=== PATIENT | female | born 1940 | race Caucasian/White ===

== ENCOUNTER 2016-08-10 13:24 | Inpatient (IN) | payer MEDICARE ==
[~2016-08-10] VITALS: Ht 162.6 cm; Wt 82.7 kg
[2016-08-10] VITALS (7 sets, daily range): BP systolic 112–135; BP diastolic 55–73; PULSE 57–96; RESP 16–18; TEMP 97.8–98.2; O2SAT 95–98
[~2016-08-10 13:24] MED LIST: AMLO5TAB2 PO; ASPI81CH CHEW; ATEN25TA PO; ATOR20TA15 PO; BENA25TA3 PO; CEPH500C PO; CHLO25TA2 PO; CLON0.1T PO; CO Q60CA; DULO1CAP2 PO; ESSE250T; FENO1TAB39 PO; FURO20TA PO; GLUC500C36; GUAN1TAB PO; LEVO137T2 PO; LOSA25TA PO; MAGN250T10 PO; METF500T PO; MULTTAB68; OMEG100T; VITA100064 PO; VITA250T3 PO; [UNRECOGNIZED DRUG - SUPPLY]; [UNRECOGNIZED DRUG - SUPPLY]
[2016-08-10] MEDS ORDERED: DILTIAZEM INJ 125 MG in SODIUM CHLORIDE 0.9% INJ 100 ML IV SCH (13:45)
[2016-08-10] MEDS ORDERED: SODIUM CHLOR 0.9% 1000 ML INJ 1,000 ML IV SCH ×2 (13:45→14:28)
[2016-08-10] MEDS ORDERED: ONDANSETRON HCL 4 MG/2 ML VIAL IVP ONE (13:45)
--- NOTE | 2016-08-10 13:54 | PD ---
HPI Chief Complaint: Cardiac Complaint Time Seen by Provider: 13:49 Travel History International Travel<30 days: No Contact w/Intl Traveler<30days: No Traveled to known affect area: No History of Present Illness HPI 74-year-old female that presents to the ED for evaluation of weakness, nausea and dizziness as well as what appears to be new onset A. fib. Patient reports that this morning she woke up kind of weak and feeling fatigued. The patient she went to clinic to do research evaluation for arthritic pain and at the clinic they performed an EKG as well as an evaluation in the told her to come here. Patient had an ambulance called. Ambulance found her what appears to be A. fib with RVR. Heart rate was in the 150s 170s. Patient was given Cardizem as well as Zofran which improved the heart rate as well as some of her symptoms. Per patient she still feels fatigued. She denies any history of A. fib in the past but states that she had an old history of tachycardia for which she takes atenolol. She states that she's never had any heart issues. She has a whole history of smoking. Per patient she has high blood pressure as well as per patient takes metformin but not because she has diabetes but because she is prediabetic. She denies any shortness of breath. No chest pain. Per patient she had a bowel movement today that was liquidy but no bloody or black. She states that she threw up twice today. She denies any shortness of breath. No cough or runny nose. Nobody else is sick in the house. Denies any recent travel. No injuries. No headache. No pain of any kind. PFSH Past Medical History Heart Rhythm Problems: Yes (tachycardia but not a. fib per patiente years ago) High Cholesterol: Yes Diabetes: Yes Hypertension: Yes Thyroid Disease: Yes ?: Not Social History Alcohol Use: Yes Tobacco Use: No (quit "years" ago) Substance Use: No Allergies-Medications (Allergen,Severity, Reaction): Coded Allergies: Adhesives (Verified Allergy, Intermediate, Rash, 08/01/16) rash/itchy/redness Codeine (Verified Allergy, Mild, neasua, 08/01/16) Sulfa (Verified Allergy, Unknown, Rash, 08/01/16) Polytrim (Verified Adverse Reaction, Intermediate, red burning eyes, ) Reported Meds & Prescriptions Reported Meds & Active Scripts Active Fenofibrate 120 Mg Tab 134 Mg PO DAILY Take with meals Cephalexin 500 Mg Cap 500 Mg PO Q12H Atorvastatin (Atorvastatin Calcium) 20 Mg Tab 20 Mg PO HS Metformin (Metformin HCl) 500 Mg Tab 500 Mg PO AC BREAKFAST Losartan (Losartan Potassium) 25 Mg Tab 25 Mg PO DAILY Chlorthalidone 25 Mg Tab 0.5 Tab PO DAILY Atenolol 25 Mg Tab 25 Mg PO BID Levothyroxine (Levothyroxine Sodium) 137 Mcg Tab 137 Mcg PO DAILY Furosemide 20 Mg Tab 0.5 Tab PO DAILY PRN Duloxetine DR (Duloxetine HCl) 30 Mg Capdr 30 Mg PO HS Amlodipine (Amlodipine Besylate) 5 Mg Tab 5 Mg PO DAILY Guanfacine (Guanfacine HCl) 1 Mg Tab 3 Tab PO HS Do not crush, chew or divide tablet. Take with a meal. [Truemetric Strips] 50 Strips .XX DAILY PRN [TrueMetric] 1 Kit .XX DAILY PRN TrueMetrics Glucometer Reported Magnesium 250 Mg Tab [id number] (Multivitamin) 1 Each Tablet Glucosamine & Chondroitin Cap (Glucosa Batista 2Kcl/Chondroitin Batista) 1 Each Capsule Vitamin C (Ascorbic Acid) 250 Mg Tab 250 Mg PO Dorchester-3 (Dorchester-3 Fatty Acids) 100 Mg Tab.chew Co Q 10 (Coenzyme Q10 (Ubidecarenone)) 60 Mg Cap Vitamin D (Cholecalciferol) 1,000 Unit Tab 1,000 Units PO DAILY Aspirin 81 Mg Chew 162 Mg CHEW DAILY Benadryl Allergy (Diphenhydramine HCl) 25 Mg Tab 25 Mg PO HS PRN Magnesium Gluconate Unknown Strength Tab Unknown Dose PO DAILY Two tabs AM and Three tabs PM Clonidine (Clonidine HCl) 0.1 Mg Tab 0.1 Mg PO BID PRN SBP>160, DBP>90 Review of Systems Except as stated in HPI: all other systems reviewed are Neg Physical Exam Narrative GENERAL: SKIN: Warm and dry. HEAD: Atraumatic. Normocephalic. EYES: Pupils equal and round. No scleral icterus. No injection or drainage. ENT: No nasal bleeding or discharge. Mucous membranes pink and moist. Tongue is midline. No uvula deviation. NECK: Trachea midline. No JVD. CARDIOVASCULAR: Irregular rate and rhythm. No murmurs, S3, S4. RESPIRATORY: No accessory muscle use. Clear to auscultation. Breath sounds equal bilaterally. GASTROINTESTINAL: Abdomen soft, mild tenderness to palpation on the lower abdomen especially with deep palpation, nondistended. Hepatic and splenic margins not palpable. MUSCULOSKELETAL: Extremities without clubbing, cyanosis, or edema. No obvious deformities. Full range of motion of the upper and lower extremities bilaterally. 2+ pulses bilaterally. NEUROLOGICAL: Awake and alert. No obvious cranial nerve deficits. Motor grossly within normal limits. Five out of 5 muscle strength in the arms and legs. Normal speech. PSYCHIATRIC: Appropriate mood and affect; insight and judgment normal. Data Data Last Documented VS Vital Signs Date Time Temp Pulse Resp B/P Pulse Ox O2 Delivery O2 Flow Rate FiO2 08/10/16 14:39 96 16 135/73 95 Room Air 08/10/16 13:34 98.2 Orders Complete Blood Count With Diff (08/10/16 13:45) Comprehensive Metabolic Panel (08/10/16 13:45) Ckmb (Isoenzyme) Profile (08/10/16 13:45) Troponin I (08/10/16 13:45) Prothrombin Time / Inr (Pt) (08/10/16 13:45) Act Partial Throm Time (Ptt) (08/10/16 13:45) Lipase (08/10/16 13:45) Urinalysis - C+S If Indicated (08/10/16 13:45) Magnesium (Mg) (08/10/16 13:45) Thyroid Stimulating Hormone (08/10/16 13:45) Chest, Single Ap (08/10/16 13:45) Iv Access Insert/Monitor (08/10/16 13:45) Ecg Monitoring (08/10/16 13:45) Oximetry (08/10/16 13:45) Lactic Acid (08/10/16 13:45) Ondansetron Inj (Zofran Inj) (08/10/16 13:45) Sodium Chlor 0.9% 1000 Ml Inj (Ns 1000 M (08/10/16 13:45) Vital Signs (Adult) Q15MX4,Q4H (08/10/16 13:45) Environmental Health Safety Manager / Telemetry ALBERT.Q8H (08/10/16 13:45) Cardiac Rhythm ALBERT.Q8H (08/10/16 13:45) Notify Dr: Other (08/10/16 13:45) Diltiazem Inj (Cardizem Inj) (08/10/16 13:45) Sodium Chlor 0.9% 1000 Ml Inj (Ns 1000 M (08/10/16 14:28) Labs Laboratory Tests Test 08/10/16 14:00 White Blood Count 9.1 TH/MM3 Red Blood Count 4.14 MIL/MM3 Hemoglobin 13.8 GM/DL Hematocrit 40.1 % Mean Corpuscular Volume 96.8 FL Mean Corpuscular Hemoglobin 33.4 PG Mean Corpuscular Hemoglobin 34.5 % Concent Red Cell Distribution Width 12.5 % Platelet Count 189 TH/MM3 Mean Platelet Volume 9.6 FL Neutrophils (%) (Auto) 83.4 % Lymphocytes (%) (Auto) 9.3 % Monocytes (%) (Auto) 6.1 % Eosinophils (%) (Auto) 0.8 % Basophils (%) (Auto) 0.4 % Neutrophils # (Auto) 7.6 TH/MM3 Lymphocytes # (Auto) 0.8 TH/MM3 Monocytes # (Auto) 0.6 TH/MM3 Eosinophils # (Auto) 0.1 TH/MM3 Basophils # (Auto) 0.0 TH/MM3 CBC Comment DIFF FINAL Differential Comment Prothrombin Time 11.6 SEC Prothromb Time International 1.0 RATIO Ratio Activated Partial 23.6 SEC Thromboplast Time Urine Color LIGHT-YELLOW Urine Turbidity HAZY Urine pH 7.5 Urine Specific [place] 1.009 Urine Protein 30 mg/dL Urine Glucose (UA) NEG mg/dL Urine Ketones NEG mg/dL Urine Occult Blood NEG Urine Nitrite NEG Urine Bilirubin NEG Urine Urobilinogen LESS THAN 2.0 MG/DL Urine Leukocyte Esterase NEG Urine RBC 1 /hpf Urine WBC 2 /hpf Urine Squamous Epithelial 1 /hpf Cells Urine Amorphous Sediment RARE Urine Bacteria RARE /hpf Microscopic Urinalysis Comment CULT NOT INDICATED Sodium Level 141 MEQ/L Potassium Level 3.0 MEQ/L Chloride Level 105 MEQ/L Carbon Dioxide Level 23.7 MEQ/L Anion Gap 12 MEQ/L Blood Urea Nitrogen 21 MG/DL Creatinine 0.64 MG/DL Estimat Glomerular Filtration 91 ML/MIN Rate Random Glucose 142 MG/DL Lactic Acid Level 2.4 mmol/L Calcium Level 8.6 MG/DL Magnesium Level 1.6 MG/DL Total Bilirubin 0.4 MG/DL Aspartate Amino Transf 23 U/L (AST/SGOT) Alanine Aminotransferase 31 U/L (ALT/SGPT) Alkaline Phosphatase 50 U/L Total Creatine Kinase 78 U/L Troponin I LESS THAN 0.02 NG/ML Total Protein 7.1 GM/DL Albumin 4.3 GM/DL Lipase 153 U/L Thyroid Stimulating Hormone 2.910 uIU/ML 3rd Gen [facility] Medical Decision Making Medical Screen Exam Complete: Yes Emergency Medical Condition: Yes Medical Record Reviewed: Yes Interpretation(s) CBC & BMP Diagram 08/10/16 14:00 lactic acid of 2.6 LFTS WNL Lipase WNL UA negative TSH WNL EKG shows a. fib with RVR here. No sign of acute ischemia or arrhythmia read by me and attending. troponin and CKMB negative CXR negative for acute disease Differential Diagnosis A. fib versus dizziness versus new onset A. fib versus acute abdomen versus viral illness versus ACS versus electrolyte abnormality Narrative Course 75-year-old female that presents to the ED for evaluation of fatigue, weakness and new onset A. fib. Patient was properly examined and was found to have signs and symptoms of unclear etiologies at this time. Patient does appear to be somewhat tender in the lower abdomen but per patient she has to go urinate really bad. At this time I recommend labs and imaging. I will reassess the patient once she has urinated and empty her bladder for the pain in the lower abdomen. I spoke with my attending who evaluated the patient with me and agrees with plan. On reevaluation abdominal discomfort after urinarting gone, abdomen more benign at this time. My attending agrees to admission for new onset a. fib currently on drip. TEODORO was paged and Dr Galeano agrees to admission. Procedures EKG Prior to Arrival: Yes (shows a. fib on RVR at 150s-170s) Sepsis Criteria SIRS Criteria (2 or more): Heart rate over 90 Diagnosis Primary Impression: Atrial fibrillation with RVR Additional Impressions: Nausea Lactic acid acidosis Admitting Information Admitting Physician Requests: Admit Nguyễn Slater Aug 10, 2016 13:54
[2016-08-10 14:10] LABS: AUTOMATED NEUTROPHIL # 7.6 TH/MM3 (1.8-7.7); BASOPHIL % 0.4 % (0.0-2.0); EOSINOPHIL # 0.1 TH/MM3 (0-0.4); EOSINOPHIL % 0.8 % (0.0-4.0); HEMATOCRIT 40.1 % (35.0-46.0); HEMO FLAGS DIFF FINAL; LYMPH % 9.3 % (9.0-44.0); LYMPHOCYTE # 0.8 TH/MM3 (1.0-4.8); MEAN CELL VOLUME 96.8 FL (80.0-100.0); MEAN CORPUSCULAR HEMOGLOBIN 33.4 PG (27.0-34.0); MEAN CORPUSCULAR HGB CONC 34.5 % (32.0-36.0); MONO % 6.1 % (0.0-8.0); NEUT % 83.4 % (16.0-70.0); PLATELET COUNT 189 TH/MM3 (150-450); RED BLOOD COUNT 4.14 MIL/MM3 (4.00-5.30); RED CELL DISTRIBUTION WIDTH 12.5 % (11.6-17.2); WHITE BLOOD COUNT 9.1 TH/MM3 (4.0-11.0)
[2016-08-10 14:12] LABS: BACTERIA, URINE RARE /hpf; BLOOD, URINE NEG (NEG); COMMENT (UR) CULT NOT INDICATED; CULTURE IF INDICATED CULT NOT INDICATED; GLUCOSE,URINE NEG (NEG); KETONE, URINE NEG (NEG); NITRITE,URINE NEG (NEG); PH, URINE 7.5 (5.0-8.5); SQUAMOUS EPITHELIAL CELL URINE 1 /hpf (0-5); URINE COLOR LIGHT-YELLOW (YELLW/STRAW)
[2016-08-10 14:20] LABS: APTT (PATIENT) 23.6 SEC (24.3-30.1); PROTHROMBIN TIME - PATIENT 11.6 SEC (9.8-11.6)
[2016-08-10 14:22] LABS: ALT (GPT) 31 U/L (10-53); ANION GAP 12 MEQ/L (5-15); AST (GOT) 23 U/L (15-37); BICARBONATE 23.7 MEQ/L (21.0-32.0); BLOOD UREA NITROGEN 21 MG/DL (7-18); CHLORIDE 105 MEQ/L (98-107); GLOMERULAR FILTRATION RATE 91 ML/MIN (>89); MAGNESIUM 1.6 MG/DL (1.5-2.5); SODIUM (NA) 141 MEQ/L (136-145)
[2016-08-10 14:32] LABS: ALKALINE PHOSPHATASE 50 U/L (45-117); TOTAL BILIRUBIN ADULT 0.4 MG/DL (0.2-1.0)
[2016-08-10 14:33] LABS: CREATINE KINASE 78 U/L (26-192)
--- NOTE | 2016-08-10 14:53 | RADRPT ---
EXAM DATE/TIME: 08/10/2016 13:57 [facility] COMPARISON: No previous studies available for comparison. INDICATIONS : Dizziness today. MEDICAL HISTORY : Hypertension. Carcinoma, breast. SURGICAL HISTORY : Mastectomy, bilateral. Hysterectomy. ENCOUNTER: Initial ACUITY: 1 day PAIN SCORE: 0/10 LOCATION: Bilateral chest FINDINGS: Lungs are symmetrically aerated. Some thin horizontal linear densities are present in the costophren ic angles bilaterally suggestive of septal lines or scarring. Both hemidiaphragms remain fairly well delineated. The heart is normal in size. Multiple hemoclips in the right axilla. CONCLUSION: No infiltrates seen. Linear densities in the costophrenic angles bilaterally are nonspecific and cou ld represent septal lines from pulmonary interstitial edema, atelectasis, or chronic scarring. Francisco Del Angel MD on August 10, 2016 at 14:49 Board Certified Radiologist. This report was verified electronically.
--- NOTE | 2016-08-10 15:14 | PD ---
Data Data Last Documented VS Vital Signs Date Time Temp Pulse Resp B/P Pulse Ox O2 Delivery O2 Flow Rate FiO2 08/10/16 14:39 96 16 135/73 95 Room Air 08/10/16 13:34 98.2 Orders Complete Blood Count With Diff (08/10/16 13:45) Comprehensive Metabolic Panel (08/10/16 13:45) Ckmb (Isoenzyme) Profile (08/10/16 13:45) Troponin I (08/10/16 13:45) Prothrombin Time / Inr (Pt) (08/10/16 13:45) Act Partial Throm Time (Ptt) (08/10/16 13:45) Lipase (08/10/16 13:45) Urinalysis - C+S If Indicated (08/10/16 13:45) Magnesium (Mg) (08/10/16 13:45) Thyroid Stimulating Hormone (08/10/16 13:45) Chest, Single Ap (08/10/16 13:45) Iv Access Insert/Monitor (08/10/16 13:45) Ecg Monitoring (08/10/16 13:45) Oximetry (08/10/16 13:45) Lactic Acid (08/10/16 13:45) Ondansetron Inj (Zofran Inj) (08/10/16 13:45) Sodium Chlor 0.9% 1000 Ml Inj (Ns 1000 M (08/10/16 13:45) Vital Signs (Adult) Q15MX4,Q4H (08/10/16 13:45) Silver Spray Worker / Telemetry ALBERT.Q8H (08/10/16 13:45) Cardiac Rhythm ALBERT.Q8H (08/10/16 13:45) Notify Dr: Other (08/10/16 13:45) Diltiazem Inj (Cardizem Inj) (08/10/16 13:45) Sodium Chlor 0.9% 1000 Ml Inj (Ns 1000 M (08/10/16 14:28) Labs Laboratory Tests Test 08/10/16 14:00 White Blood Count 9.1 TH/MM3 Red Blood Count 4.14 MIL/MM3 Hemoglobin 13.8 GM/DL Hematocrit 40.1 % Mean Corpuscular Volume 96.8 FL Mean Corpuscular Hemoglobin 33.4 PG Mean Corpuscular Hemoglobin 34.5 % Concent Red Cell Distribution Width 12.5 % Platelet Count 189 TH/MM3 Mean Platelet Volume 9.6 FL Neutrophils (%) (Auto) 83.4 % Lymphocytes (%) (Auto) 9.3 % Monocytes (%) (Auto) 6.1 % Eosinophils (%) (Auto) 0.8 % Basophils (%) (Auto) 0.4 % Neutrophils # (Auto) 7.6 TH/MM3 Lymphocytes # (Auto) 0.8 TH/MM3 Monocytes # (Auto) 0.6 TH/MM3 Eosinophils # (Auto) 0.1 TH/MM3 Basophils # (Auto) 0.0 TH/MM3 CBC Comment DIFF FINAL Differential Comment Prothrombin Time 11.6 SEC Prothromb Time International 1.0 RATIO Ratio Activated Partial 23.6 SEC Thromboplast Time Urine Color LIGHT-YELLOW Urine Turbidity HAZY Urine pH 7.5 Urine Specific [place] 1.009 Urine Protein 30 mg/dL Urine Glucose (UA) NEG mg/dL Urine Ketones NEG mg/dL Urine Occult Blood NEG Urine Nitrite NEG Urine Bilirubin NEG Urine Urobilinogen LESS THAN 2.0 MG/DL Urine Leukocyte Esterase NEG Urine RBC 1 /hpf Urine WBC 2 /hpf Urine Squamous Epithelial 1 /hpf Cells Urine Amorphous Sediment RARE Urine Bacteria RARE /hpf Microscopic Urinalysis Comment CULT NOT INDICATED Sodium Level 141 MEQ/L Potassium Level 3.0 MEQ/L Chloride Level 105 MEQ/L Carbon Dioxide Level 23.7 MEQ/L Anion Gap 12 MEQ/L Blood Urea Nitrogen 21 MG/DL Creatinine 0.64 MG/DL Estimat Glomerular Filtration 91 ML/MIN Rate Random Glucose 142 MG/DL Lactic Acid Level 2.4 mmol/L Calcium Level 8.6 MG/DL Magnesium Level 1.6 MG/DL Total Bilirubin 0.4 MG/DL Aspartate Amino Transf 23 U/L (AST/SGOT) Alanine Aminotransferase 31 U/L (ALT/SGPT) Alkaline Phosphatase 50 U/L Total Creatine Kinase 78 U/L Troponin I LESS THAN 0.02 NG/ML Total Protein 7.1 GM/DL Albumin 4.3 GM/DL Lipase 153 U/L Thyroid Stimulating Hormone 2.910 uIU/ML 3rd Gen MDM Supervised Visit with RUSTY: Yes Narrative Course The history, exam, and medical decision-making in the associated mid-level provider note were completed with my assistance. I reviewed and agree with the findings presented. I attest that I had a [id number] encounter with the patient on the same day, and personally performed and documented my assessment and findings in the medical record. *My assessment and Findings: 74 year-old woman with weakness lethargy and some nausea with vomiting, at a research clinic for her initial intake interview when she began to have vomiting. She was found to have A. fib RVR with a rate in the 130s. EMS was called given 20 of diltiazem. Here she is still fairly somatic despite a heart rate down in the 80s to 100s. She is placed on diltiazem drip, given antiemetics, labs were obtained. No history of A. fib. She does drink alcohol regularly. No other complaints. We'll plan on admission for further evaluation and treatment. Diagnosis Primary Impression: Atrial fibrillation with RVR Additional Impressions: Lactic acid acidosis Nausea Tino Conrad MD Aug 10, 2016 15:14
[2016-08-10] MEDS ORDERED: POTASSIUM CHLORIDE 10 MEQ CONTROLLED RELEASE TAB PO ONE (15:15)
[2016-08-10] MEDS ORDERED: SODIUM CHLORIDE 0.9% FLUSH 10 ML FLUSH IV FLUSH PRN (15:15)
[2016-08-10] MEDS: NS + KCL 20 MEQ INJ 1,000 ML IV SCH (16:00)
--- NOTE | 2016-08-10 16:56 | PD.PN.STU ---
Subjective Remarks Patient is a 74 year old white female that presented to the emergency room stating that this morning she woke up with a headache and felt weak. She went to a clinic this morning for evaluation for a research study for arthritis medication where she started to feel worse. She became nauseous and felt shaky. She was trembling and couldn't fill out her paperwork for the research facility. She felt like she had an "eerie feeling" in her chest but no chest pain. She began to vomit and vomited 5-6 times this afternoon. At the research facility when her condition did not improve they called EMS. EKG performed out of house demonstrated atrial fibrillation with RVR, her pulse was 150-170. Patient states she had similar symptoms 3 weeks ago that improved after she rested. Other than these two episodes this has not happened before. She denies chest pain, shortness of breath, visual changes, neurological symptoms, abdominal pain, urinary symptoms. She was recently treated for a UTI last week with Cephalexin. She has finished the antibiotics. Denies a history of atrial fibrillation, heart disease or alcohol abuse. 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 She has never been evaluated for sleep apnea. PMH: hypothyroidism, hypertension, hyperlipidemia, hypertriglyceridemia, prediabetes Surgical history: Hysterectomy (without BSO), Bilateral mastectomy (1989, 2012) Social history: Admits to drinking 1 martini per night. Denies current tobacco use. Intermittently smoked in the past but quit in 1967. Allergies: Sulfa (rash) Active medications: Fenofibrate 120 Mg Tab 134 Mg PO DAILY Take with meals Cephalexin 500 Mg Cap 500 Mg PO Q12H Atorvastatin (Atorvastatin Calcium) 20 Mg Tab 20 Mg PO HS Metformin (Metformin HCl) 500 Mg Tab 500 Mg PO AC BREAKFAST Losartan (Losartan Potassium) 25 Mg Tab 25 Mg PO DAILY Chlorthalidone 25 Mg Tab 0.5 Tab PO DAILY Atenolol 25 Mg Tab 25 Mg PO BID Levothyroxine (Levothyroxine Sodium) 137 Mcg Tab 137 Mcg PO DAILY Furosemide 20 Mg Tab 0.5 Tab PO DAILY PRN Duloxetine DR (Duloxetine HCl) 30 Mg Capdr 30 Mg PO HS Amlodipine (Amlodipine Besylate) 5 Mg Tab 5 Mg PO DAILY Guanfacine (Guanfacine HCl) 1 Mg Tab 3 Tab PO HS Do not crush, chew or divide tablet. Take with a meal. [Truemetric Strips] 50 Strips .XX DAILY PRN [TrueMetric] 1 Kit .XX DAILY PRN TrueMetrics Glucometer Objective Vitals Vital Signs Date Time Temp Pulse Resp B/P Pulse Ox O2 Delivery O2 Flow Rate FiO2 08/10/16 16:25 65 18 131/59 08/10/16 14:39 96 16 135/73 95 Room Air 08/10/16 14:07 92 18 98 Room Air 08/10/16 14:07 92 18 98 Room Air 08/10/16 13:34 98.2 80 18 135/72 95 Result Diagram: 08/10/16 1400 08/10/16 1400 Objective Remarks GENERAL: Patient is a pleasant female, able to maintain appropriate conversation with eye contact. SKIN: Warm and dry. EYES: Pupils equal and round. No scleral icterus. No injection or drainage. ENT: No nasal bleeding or discharge. Mucous membranes pink and moist. Tongue is midline. No uvula deviation. CARDIOVASCULAR: Regular rate and rhythm. No murmurs, S3, S4. No JVD. RESPIRATORY: No central or peripheral cyanosis. No accessory muscle use. Clear to auscultation. Breath sounds equal bilaterally. No rhonchi, crackles or wheezing. GASTROINTESTINAL: Abdomen soft, nondistended. Hepatic and splenic margins not palpable. MUSCULOSKELETAL: Extremities without clubbing, cyanosis, or edema. No obvious deformities. Full range of motion of the upper and lower extremities bilaterally. 2+ pulses bilaterally. NEUROLOGICAL: Awake and alert. No obvious cranial nerve deficits. Motor grossly within normal limits. Five out of 5 muscle strength in the arms and legs. Normal speech. PSYCHIATRIC: Appropriate mood and affect; insight and judgment normal. A/P Assessment and Plan 1. Acute onset atrial fibrillation - Out of house EKG showed atrial fibrillation with RVR, pulse 150-170s. Most recent pulse 96. Denies history of previous a fib. - Hemodynamically stable, currently in sinus rhythm. - Started on diltiazem drip, metoprolol po - Order TSH - Cardiac echo results pending 2. Hypokalemia - history of vomiting this afternoon - replenish potassium 3. Lactic acidosis - Lactic acid level 2.4 4. Nausea - Continue Zofran as needed 5. Hyperglycemia - Fasting glucose was 142 - Patient on metformin at home for "prediabetes" Vika Link M3 Aug 10, 2016 16:56 Lalo Glover MD Aug 11, 2016 13:46
--- NOTE | 2016-08-10 17:02 | MB ---
cc: RANDEE AMEZCUA MD DATE OF CONSULTATION 08/10/16 INDICATIONS Atrial fibrillation. HISTORY OF PRESENT ILLNESS This is a 74-year-old female. She had progressive weakness, some nausea, dizziness, came in with new onset atrial fibrillation. She woke up this morning, went over to arthritic pain clinic and there she was complaining of some lightheadedness and nausea. They did an EKG which found atrial fibrillation. She was told to come into the ER here. When she arrivided, she was rapid ventricular rate with a heart rate to the 150s. She does not have any prior history of known heart disease that she knows of. She does take atenolol for prior mild arrhythmia but not atrial fibrillation and she is prediabetic. She now looks like she has converted after IV diltiazem. PAST MEDICAL HISTORY 1. Anemia, 2. Diabetes, 3. Hypertension 4. Prior tachycardia. SOCIAL HISTORY Denies any alcohol, tobacco or drug use. ALLERGIES ADHESIVES CODEINE SULFA POLYTRIM MEDICATIONS 1. Fenofibrate. 2. Cephalexin. 3. Atorvastatin. 4. Metformin. 5. Losartan. 6. Chlorthalidone. 7. Atenolol 8. Levothyroxine 9. Furosemide. 10. Amlodipine. REVIEW OF SYSTEMS A 12-point review of systems was performed, negative unless otherwise noted in history of present illness. PHYSICAL EXAMINATION VITAL SIGNS: Temperature 98, pulse 96, blood pressure 135/73 mmHg. GENERAL: Alert and oriented x3 in no acute distress. HEENT: Pupils reactive to light and accommodation. Extraocular movements are intact. No elevation in jugular venous distension. No thyromegaly, no lymphadenopathy, no carotid bruits. LUNGS: Clear to auscultation bilaterally. HEART: Regular rate and rhythm without murmurs, rubs or gallops. ABDOMEN: Nontender, nondistended. Good bowel sounds. No hepatosplenomegaly. EXTREMITIES: No clubbing, cyanosis or edema. Good peripheral pulses. NEUROLOGIC: Cranial nerves intact. Motor sensory grossly intact. LABORATORY DATA WBC 9.1, hemoglobin is 13.8, platelet count 189, INR is 1. Sodium 141, potassium 3.0, troponins negative and BUN is 21, creatinine 0.64. ASSESSMENT 1. Atrial fibrillation rapid ventricular rate 2. Hypertension 3. Prediabetes 4. Hyperlipidemia. PLAN The patient symptomatically is improving. I looks like she has now converted back to sinus rhythm. Her CHADS vas score would be 4 if you consider her diabetes as a point. We will discontinue atenolol, discontinue amlodipine, start metoprolol. She is currently on aspirin. We will bump that down to 81 mg a day. Then, we will have to have a discussion about long-term anticoagulation given her elevated cardioembolic risk. We will get a 2-D echocardiogram. Anticipate possible discharge tomorrow. MD JAZMIN Rinaldi/ /4:15 PM /4:48 PM
--- NOTE | 2016-08-10 17:11 | ECHRPT ---
Indication: Paroxysmal atrial fibrillation, atrial fib CONCLUSIONS Mild thickening of the mitral valve leaflets. Trace mitral valve regurgitation. Mild mitral annular calcification. Structurally normal tricuspid valve. There is trace tricuspid valve regurgitation. There is estimated moderate-to- severe pulmonary hypertension present (range 60-70 mmHg). Normal left ventricular size. Wall thickness is measured at the upper limits of normal. The left ventricular systolic function is normal with an estimated ejection fraction in the range of 55-60%. No regional wall motion abnormalities are present. BP: 135 / 73 HR: Rhythm: MEASUREMENTS (Male / Female) Normal Values Technical Quality: 2D ECHO LV Diastolic Diameter PLAX 5.7 cm 4.2 - 5.9 / 3.9 - 5.3 cm LV Systolic Diameter PLAX 3.9 cm IVS Diastolic Thickness 0.8 cm 0.6 - 1.0 / 0.6 - 0.9 cm LVPW Diastolic Thickness 0.8 cm 0.6 - 1.0 / 0.6 - 0.9 cm LV Relative Wall Thickness 0.3 LVOT Diameter 2.0 cm LA Systolic Diameter LX 3.8 cm 3.0 - 4.0 / 2.7 - 3.8 cm M-MODE AV Cusp Separation MM 1.9 cm DOPPLER AV Peak Velocity 146.0 cm/s AV Peak Gradient 8.5 mmHg AV Mean Gradient 5.0 mmHg AV Velocity Time Integral 36.7 cm LVOT Peak Velocity 69.2 cm/s LVOT Peak Gradient 1.9 mmHg LVOT Velocity Time Integral 15.9 cm AV Area Cont Eq vti 1.4 cm AV Area Cont Eq pk 1.5 cm Mitral E Point Velocity 85.9 cm/s Mitral A Point Velocity 30.6 cm/s Mitral E to A Ratio 2.8 LV E' Lateral Velocity 7.4 cm/s Mitral E to LV E' Lateral Ratio 11.6 LV E' Septal Velocity 6.8 cm/s Mitral E to LV E' Septal Ratio 12.6 TR Peak Velocity 353.0 cm/s TR Peak Gradient 49.8 mmHg PV Peak Velocity 48.9 cm/s PV Peak Gradient 1.0 mmHg FINDINGS Left Ventricle Normal left ventricular size. Wall thickness is measured at the upper limits of normal. The left ventricular systolic function is normal with an estimated ejection fraction in the range of 55-60%. No regional wall motion abnormalities are present. Left Atrium The left atrial size is mildly dilated. Mitral Valve Mild thickening of the mitral valve leaflets. Trace mitral valve regurgitation. Mild mitral annular calcification. Tricuspid Valve Structurally normal tricuspid valve. There is trace tricuspid valve regurgitation. There is estimated moderate-to- severe pulmonary hypertension present (range 60-70 mmHg). Tino Rodríguez MD, FACC (Electronically Signed) Final Date:10 August 2016 17:10 MTDD
[2016-08-10] MEDS: METOPROLOL TARTRATE 50 MG TAB PO SCH (17:38)
[2016-08-10 18:14] LABS: CREATINE KINASE 71 U/L (26-192)
--- NOTE | 2016-08-10 20:01 | HHI.HP ---
HPI Service [facility] Hospitalists Primary Care Physician Non-Staff Admission Diagnosis new onset atrial fibrillation in RVR, N/V/D Diagnoses: Chief Complaint: weakness Travel History International Travel<30 Days: No Contact w/Intl Traveler <30 Da: No Traveled to Known Affected Are: No History of Present Illness 75-year-old female with past medical history of hypertension, hyperlipidemia, hypothyroidism, prediabetes who presents to [facility] complaining of generalized weakness. The patient states that this morning she woke up and went to a clinic this morning for evaluation of a research study for arthritis medication when she started to feel worse. Patient states that she felt nauseous and shaky and also had open patient's, however denied any chest pain. The patient states that early in the morning she had 2 episodes of diarrhea and vomited 5-6 times this afternoon. Patient states that the recent facility her condition not improve so they called EMS. EKG performed in house showed atrial fibrillation with RVR at which time her pulse was 150-1 70 bpm. At the time she was given IV Cardizem which slowed her heart rate down but then it went up again and the patient was started on a Cardizem drip. The patient states she had similar symptoms 2 weeks ago which improved and resolved spontaneously with rest only. The patient otherwise denies any chest pain, shortness of breath, visual changes, abdominal pain, dysuria. States that feels nauseous, denies any further vomiting or diarrhea. Note that the patient has been recently treated for UTI last week with cephalexin which she recently finished this past weekend. Denies any previous history of atrial fibrillation heart disease or alcohol abuse. 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 Review of Systems As per history of present illness, other systems reviewed by me and negative Past Family Social History Past Medical History 1. Hypertension 2. Hyperlipidemia. 3. Hypothyroidism. 4. Hypertriglyceridemia. 5. Prediabetes. 6. Breast cancer 7. Depression Past Surgical History 1. Hysterectomy. 2. Bilateral mastectomy Reported Medications Reported Meds & Active Scripts Active Fenofibrate 120 Mg Tab 134 Mg PO DAILY Take with meals Cephalexin 500 Mg Cap 500 Mg PO Q12H Atorvastatin (Atorvastatin Calcium) 20 Mg Tab 20 Mg PO HS Metformin (Metformin HCl) 500 Mg Tab 500 Mg PO AC BREAKFAST Losartan (Losartan Potassium) 25 Mg Tab 25 Mg PO DAILY Chlorthalidone 25 Mg Tab 0.5 Tab PO DAILY Atenolol 25 Mg Tab 25 Mg PO BID Levothyroxine (Levothyroxine Sodium) 137 Mcg Tab 137 Mcg PO DAILY Furosemide 20 Mg Tab 0.5 Tab PO DAILY PRN Duloxetine DR (Duloxetine HCl) 30 Mg Capdr 30 Mg PO HS Amlodipine (Amlodipine Besylate) 5 Mg Tab 5 Mg PO DAILY Guanfacine (Guanfacine HCl) 1 Mg Tab 3 Tab PO HS Do not crush, chew or divide tablet. Take with a meal. [Truemetric Strips] 50 Strips .XX DAILY PRN [TrueMetric] 1 Kit .XX DAILY PRN TrueMetrics Glucometer Reported Magnesium 250 Mg Tab Vwd-Pyvjhy-Qekgb (Multivitamin) 1 Each Tablet Glucosamine & Chondroitin Cap (Glucosa Batista 2Kcl/Chondroitin Batista) 1 Each Capsule Vitamin C (Ascorbic Acid) 250 Mg Tab 250 Mg PO [place]-3 ([place]-3 Fatty Acids) 100 Mg Tab.chew Co Q 10 (Coenzyme Q10 (Ubidecarenone)) 60 Mg Cap Vitamin D (Cholecalciferol) 1,000 Unit Tab 1,000 Units PO DAILY Aspirin 81 Mg Chew 162 Mg CHEW DAILY Benadryl Allergy (Diphenhydramine HCl) 25 Mg Tab 25 Mg PO HS PRN Magnesium Gluconate Unknown Strength Tab Unknown Dose PO DAILY Two tabs AM and Three tabs PM Clonidine (Clonidine HCl) 0.1 Mg Tab 0.1 Mg PO BID PRN SBP>160, DBP>90 Allergies: Coded Allergies: Adhesives (Verified Allergy, Intermediate, Rash, 08/01/16) rash/itchy/redness Codeine (Verified Allergy, Mild, neasua, 08/01/16) Sulfa (Verified Allergy, Unknown, Rash, 08/01/16) Polytrim (Verified Adverse Reaction, Intermediate, red burning eyes, ) Active Ordered Medications Current Medications Medications (Trade) Dose Ordered Sig/Parag Route Start Time Stop Time Status Last Admin (NS Flush) 2 ml UNSCH PRN IV FLUSH 08/10/16 15:15 Sodium Chloride 2 ml 2 ml BID IV FLUSH 08/10/16 21:00 08/11/16 13:53 (NS + KCl 20 Meq Inj) 1,000 ml @ 100 mls/hr Q10H IV 08/10/16 16:00 08/11/16 03:06 (Lipitor) 20 mg HS PO 08/10/16 21:00 08/10/16 21:55 (Cymbalta Dr) 30 mg HS PO 08/10/16 21:00 08/10/16 21:55 (Aspirin Chew) 81 mg DAILY CHEW 08/11/16 09:00 08/11/16 13:52 (Lopressor) 50 mg BID PO 08/10/16 21:00 08/11/16 13:52 (Tricor) 145 mg DAILY PO 08/11/16 09:00 08/11/16 13:52 (Synthroid) 112 mcg DAILY@06 PO 08/11/16 06:00 08/11/16 06:06 (Synthroid) 25 mcg DAILY@06 PO 08/11/16 06:00 08/11/16 06:06 Family History Patients mother had age fibrillation and mitral valve repair Social History Patient denies current tobacco use. She smoked intermittently in the past but quit in 1967. Metastases to drinking one martini per night Physical Exam Vital Signs Vital Signs Date Time Temp Pulse Resp B/P Pulse Ox O2 Delivery O2 Flow Rate FiO2 08/10/16 16:25 65 18 131/59 08/10/16 14:39 96 16 135/73 95 Room Air 08/10/16 14:07 92 18 98 Room Air 08/10/16 14:07 92 18 98 Room Air 08/10/16 13:34 98.2 80 18 135/72 95 Physical Exam GENERAL: This is a well-nourished, well-developed patient, in no apparent distress. SKIN: No rashes, ecchymoses or lesions. Cool and dry. HEAD: Atraumatic. Normocephalic. No temporal or scalp tenderness. EYES: Pupils equal round and reactive. Extraocular motions intact. No scleral icterus. No injection or drainage. ENT: Nose without bleeding, purulent drainage or septal hematoma. Throat without erythema, tonsillar hypertrophy or exudate. Uvula midline. Airway patent. NECK: Trachea midline. No JVD or lymphadenopathy. Supple, nontender, no meningeal signs. CARDIOVASCULAR: Regular rate and rhythm without murmurs, gallops, or rubs. RESPIRATORY: Clear to auscultation. Breath sounds equal bilaterally. No wheezes , rales, or rhonchi. GASTROINTESTINAL: Abdomen soft, non-tender, nondistended. No hepato-splenomegaly , or palpable masses. No guarding. MUSCULOSKELETAL: Extremities without clubbing, cyanosis, or edema. No joint tenderness, effusion, or edema noted. No calf tenderness. Negative Homans sign bilaterally. NEUROLOGICAL: Awake and alert. Cranial nerves II through XII intact. Motor and sensory grossly within normal limits. Five out of 5 muscle strength in all muscle groups. Normal speech. Laboratory Laboratory Tests Test 08/10/16 08/10/16 14:00 17:20 White Blood Count 9.1 Red Blood Count 4.14 Hemoglobin 13.8 Hematocrit 40.1 Mean Corpuscular Volume 96.8 Mean Corpuscular Hemoglobin 33.4 Mean Corpuscular Hemoglobin 34.5 Concent Red Cell Distribution Width 12.5 Platelet Count 189 Mean Platelet Volume 9.6 Neutrophils (%) (Auto) 83.4 Lymphocytes (%) (Auto) 9.3 Monocytes (%) (Auto) 6.1 Eosinophils (%) (Auto) 0.8 Basophils (%) (Auto) 0.4 Neutrophils # (Auto) 7.6 Lymphocytes # (Auto) 0.8 Monocytes # (Auto) 0.6 Eosinophils # (Auto) 0.1 Basophils # (Auto) 0.0 CBC Comment DIFF FINAL Differential Comment Prothrombin Time 11.6 Prothromb Time International 1.0 Ratio Activated Partial 23.6 Thromboplast Time Urine Color LIGHT-YELLOW Urine Turbidity HAZY Urine pH 7.5 Urine Specific [place] 1.009 Urine Protein 30 Urine Glucose (UA) NEG Urine Ketones NEG Urine Occult Blood NEG Urine Nitrite NEG Urine Bilirubin NEG Urine Urobilinogen LESS THAN 2.0 Urine Leukocyte Esterase NEG Urine RBC 1 Urine WBC 2 Urine Squamous Epithelial 1 Cells Urine Amorphous Sediment RARE Urine Bacteria RARE Microscopic Urinalysis Comment CULT NOT INDICATED Sodium Level 141 Potassium Level 3.0 Chloride Level 105 Carbon Dioxide Level 23.7 Anion Gap 12 Blood Urea Nitrogen 21 Creatinine 0.64 Estimat Glomerular Filtration 91 Rate Random Glucose 142 Lactic Acid Level 2.4 Calcium Level 8.6 Magnesium Level 1.6 Total Bilirubin 0.4 Aspartate Amino Transf 23 (AST/SGOT) Alanine Aminotransferase 31 (ALT/SGPT) Alkaline Phosphatase 50 Total Creatine Kinase 78 71 Troponin I LESS THAN 0.02 LESS THAN 0.02 Total Protein 7.1 Albumin 4.3 Lipase 153 Thyroid Stimulating Hormone 2.910 3rd Gen Result Diagram: 08/10/16 1400 08/10/16 1400 Imaging Chest x-ray reviewed by me showed no infiltrates. EKG reviewed by me showed atrial fibrillation at 80 bpm, no ST-T changes suggestive of active ischemia. Assessment and Plan Problem List: (1) Atrial fibrillation with RVR ICD Code: I48.91 Status: Acute (2) Lactic acid acidosis ICD Code: E87.2 Status: Acute (3) Diarrhea ICD Code: R19.7 Status: Acute (4) IFG (impaired fasting glucose) ICD Code: R73.01 Status: Acute (5) Hypothyroidism ICD Code: E03.9 Status: Acute (6) Hypokalemia ICD Code: E87.6 Status: Acute Assessment and Plan With the patient to the medical floor, monitor on telemetry Since patient is already in normal sinus rhythm discontinue the Cardizem drip after metoprolol 25 mg by mouth twice a day started Consult cardiology Continue statin for hyperlipidemia Continue duloxetine for depression which seems to be stable complains of diarrhea and had recent antibiotic use. I will order a C. difficile toxin PCR. Rx Phenergan for nausea and vomiting TSH checked on admission and within normal range Repeat oral potassium and continue to monitor BMP. Code Status Full code Discussed Condition With Patient, ED physician Physician Certification 2 Midnight Certification Type: Admission for Inpatient Services Order for Inpatient Services The services are ordered in accordance with Medicare regulations or non- Medicare payer requirements, as applicable. In the case of services not specified as inpatient-only, they are appropriately provided as inpatient services in accordance with the 2-midnight benchmark. Estimated LOS (days): 2 days is the estimated time the patient will need to remain in the hospital, assuming treatment plan goals are met and no additional complications. Post-Hospital Plan: Home Lalo Glover MD Aug 10, 2016 20:01
[2016-08-10] MEDS ORDERED: ATORVASTATIN 20 MG TAB PO SCH (21:00)
[2016-08-10] MEDS ORDERED: METOPROLOL TARTRATE 25 MG TAB PO SCH (21:00)
[2016-08-10] MEDS ORDERED: DULoxetine HCl DR 30 MG CAP PO SCH (21:00)
[2016-08-10] MEDS: SODIUM CHLORIDE 0.9% FLUSH 10 ML FLUSH IV FLUSH SCH (21:52)
[2016-08-10] MEDS: ENOXAPARIN SODIUM 80 MG/0.8 ML SYRINGE SQ SCH (21:52)
[2016-08-10 22:39] LABS: CREATINE KINASE 60 U/L (26-192)
[2016-08-10] MEDS ORDERED: PROMETHAZINE HCL 25 MG TAB PO ONE (23:00)
[2016-08-11] VITALS: BP 119/70; PULSE 87; RESP 16; TEMP 97.7; O2SAT 94
[2016-08-11] MEDS: NS + KCL 20 MEQ INJ 1,000 ML IV SCH (03:06)
[2016-08-11 05:00] VITALS: BP 117/56; PULSE 56; RESP 16; TEMP 97.9; O2SAT 92
[2016-08-11] MEDS ORDERED: LEVOTHYROXINE SODIUM 25 MCG TAB PO SCH (06:00)
[2016-08-11] MEDS ORDERED: LEVOTHYROXINE SODIUM 112 MCG TAB PO SCH (06:00)
[2016-08-11] MEDS: ENOXAPARIN SODIUM 80 MG/0.8 ML SYRINGE SQ SCH (06:08)
[2016-08-11 08:00] VITALS: BP 119/71; PULSE 60; PULSE 69; RESP 20; TEMP 97.5; O2SAT 94
--- NOTE | 2016-08-11 08:29 | PD.PN.STU ---
Subjective Remarks Patient states she is feeling better. She was able to sleep overnight and has no acute complaints. Her nausea has resolved with Phenergan. Denies vomiting or diarrhea. Denies chest pain, shortness of breath. Denies fevers or chills. Objective Vitals Vital Signs Date Time Temp Pulse Resp B/P Pulse Ox O2 Delivery O2 Flow Rate FiO2 08/11/16 05:00 97.9 56 16 117/56 92 08/11/16 00:00 97.7 87 16 119/70 94 08/10/16 21:24 97.8 57 16 112/55 95 08/10/16 20:05 59 08/10/16 20:00 Room Air 08/10/16 19:00 63 08/10/16 16:25 65 18 131/59 08/10/16 14:39 96 16 135/73 95 Room Air 08/10/16 14:07 92 18 98 Room Air 08/10/16 14:07 92 18 98 Room Air 08/10/16 13:34 98.2 80 18 135/72 95 I/O 08/10/16 08/10/16 08/10/16 08/11/16 08/11/16 08/11/16 07:00 15:00 23:00 07:00 15:00 23:00 Intake Total 1120 ml 1096 ml Output Total 750 ml Balance 1120 ml 346 ml Intake Oral 360 ml IV Total 760 ml 1096 ml Output Urine Total 750 ml # Voids 1 # Bowel Movements 0 0 Result Diagram: 08/10/16 1400 08/10/16 1400 Objective Remarks GENERAL: Pleasant female. Well-nourished, appears stated age, in no apparent distress. SKIN: No rashes, ecchymoses or lesions. Cool and dry. CARDIOVASCULAR: Regular rate and rhythm without murmurs, gallops, or rubs. No JVD. RESPIRATORY: Clear to auscultation. Breath sounds equal bilaterally. No wheezes , rales, or rhonchi. GASTROINTESTINAL: Abdomen soft, non-tender, nondistended. No hepato-splenomegaly , or palpable masses. No guarding. MUSCULOSKELETAL: Extremities without clubbing, cyanosis, or edema. No joint tenderness, effusion, or edema noted. No calf tenderness. Negative Homans sign bilaterally. A/P Assessment and Plan 1. Paroxysmal atrial fibrillation with RVR - Out of house EKG showed atrial fibrillation with RVR, pulse 150-170s. Denies history of previous diagnosis of atrial fibrillation. 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 - Hemodynamically stable, currently in sinus rhythm. - Continue metoprolol tartrate 25mg BID. Patient currently mildly bradycardic with pulse of 56. - Cardiac echo results demonstrated EF of 55-60%, no overall wall movement abnormalities. Mild mitral regurgitation with LA dilatation. Moderate to severe pulmonary hypertension. - [place]-Vasc score of 4 indicates chronic anticoagulation is recommended. Currently on Lovenox injections. Will discuss benefits of anticoagulation with the patient. 2. Hypokalemia - history of vomiting this afternoon - replenish potassium 3. Lactic acidosis - Lactic acid level 2.4 - Likely due to dehydration status upon arrival 4. Nausea - Zofran ineffective, use Phenergan PRN. 5. Hyperglycemia - Fasting glucose was 142 - Patient on metformin at home for "prediabetes 6. Hypothyroidism: - TSH 2.9 - Continue current Levothyroxine regimen Vika Link Aug 11, 2016 08:29 Lalo Glover MD Aug 11, 2016 13:48
--- NOTE | 2016-08-11 08:33 | PD.CARD.PN ---
Subjective Subjective Remarks denies chest pain, palpitations of shortness of breath (Elmer Peña) Objective Vital Signs / I&O Vital Signs Date Time Temp Pulse Resp B/P Pulse Ox O2 Delivery O2 Flow Rate FiO2 08/11/16 05:00 97.9 56 16 117/56 92 08/11/16 00:00 97.7 87 16 119/70 94 08/10/16 21:24 97.8 57 16 112/55 95 08/10/16 20:05 59 08/10/16 20:00 Room Air 08/10/16 19:00 63 08/10/16 16:25 65 18 131/59 08/10/16 14:39 96 16 135/73 95 Room Air 08/10/16 14:07 92 18 98 Room Air 08/10/16 14:07 92 18 98 Room Air 08/10/16 13:34 98.2 80 18 135/72 95 I/O 08/10/16 08/10/16 08/10/16 08/11/16 08/11/16 08/11/16 07:00 15:00 23:00 07:00 15:00 23:00 Intake Total 1120 ml 1096 ml Output Total 750 ml Balance 1120 ml 346 ml Intake Oral 360 ml IV Total 760 ml 1096 ml Output Urine Total 750 ml # Voids 1 # Bowel Movements 0 0 Physical Exam GENERAL: Well-nourished, well-developed patient in no apparent distress. NECK: No JVD. No carotid bruit. CARDIOVASCULAR: Regular rate and rhythm. S1/S2 no murmur, rub, or gallop. RESPIRATORY: No accessory muscle use. Clear to auscultation. Breath sounds equal bilaterally. GASTROINTESTINAL: Abdomen soft, non-tender, nondistended. MUSCULOSKELETAL: Extremities without clubbing, cyanosis, or edema. Laboratory Laboratory Tests Test 08/10/16 08/10/16 08/10/16 14:00 17:20 21:43 White Blood Count 9.1 TH/MM3 Red Blood Count 4.14 MIL/MM3 Hemoglobin 13.8 GM/DL Hematocrit 40.1 % Mean Corpuscular Volume 96.8 FL Mean Corpuscular Hemoglobin 33.4 PG Mean Corpuscular Hemoglobin 34.5 % Concent Red Cell Distribution Width 12.5 % Platelet Count 189 TH/MM3 Mean Platelet Volume 9.6 FL Neutrophils (%) (Auto) 83.4 % Lymphocytes (%) (Auto) 9.3 % Monocytes (%) (Auto) 6.1 % Eosinophils (%) (Auto) 0.8 % Basophils (%) (Auto) 0.4 % Neutrophils # (Auto) 7.6 TH/MM3 Lymphocytes # (Auto) 0.8 TH/MM3 Monocytes # (Auto) 0.6 TH/MM3 Eosinophils # (Auto) 0.1 TH/MM3 Basophils # (Auto) 0.0 TH/MM3 CBC Comment DIFF FINAL Differential Comment Prothrombin Time 11.6 SEC Prothromb Time International 1.0 RATIO Ratio Activated Partial 23.6 SEC Thromboplast Time Urine Color LIGHT-YELLOW Urine Turbidity HAZY Urine pH 7.5 Urine Specific [place] 1.009 Urine Protein 30 mg/dL Urine Glucose (UA) NEG mg/dL Urine Ketones NEG mg/dL Urine Occult Blood NEG Urine Nitrite NEG Urine Bilirubin NEG Urine Urobilinogen LESS THAN 2.0 MG/DL Urine Leukocyte Esterase NEG Urine RBC 1 /hpf Urine WBC 2 /hpf Urine Squamous Epithelial 1 /hpf Cells Urine Amorphous Sediment RARE Urine Bacteria RARE /hpf Microscopic Urinalysis Comment CULT NOT INDICATED Sodium Level 141 MEQ/L Potassium Level 3.0 MEQ/L Chloride Level 105 MEQ/L Carbon Dioxide Level 23.7 MEQ/L Anion Gap 12 MEQ/L Blood Urea Nitrogen 21 MG/DL Creatinine 0.64 MG/DL Estimat Glomerular Filtration 91 ML/MIN Rate Random Glucose 142 MG/DL Lactic Acid Level 2.4 mmol/L Calcium Level 8.6 MG/DL Magnesium Level 1.6 MG/DL Total Bilirubin 0.4 MG/DL Aspartate Amino Transf 23 U/L (AST/SGOT) Alanine Aminotransferase 31 U/L (ALT/SGPT) Alkaline Phosphatase 50 U/L Total Creatine Kinase 78 U/L 71 U/L 60 U/L Troponin I LESS THAN 0.02 LESS THAN 0.02 LESS THAN 0.02 NG/ML NG/ML NG/ML Total Protein 7.1 GM/DL Albumin 4.3 GM/DL Lipase 153 U/L Thyroid Stimulating Hormone 2.910 uIU/ML 3rd Gen (Elmer Peña) Assessment and Plan Problem List: (1) Atrial fibrillation with RVR (2) Hypertension (3) Pulmonary hypertension Assessment and Plan She remain in SR and Lexiscan SPECT is scheduled for this morning. The only significant finding on echo is moderate to severe pulmonary HTN. She is deciding between warfarin and and novel agents concerning anticoagulation Blood pressure is well controlled (Elmer Peña) Assessment and Plan --------- off the floor at nuclear if SPECT unremarkable, then DC with outpatient FU PCP [facility] 4. start anticoagulant, probable newer novel agent (Tino Rodríguez MD) Elmer Peña Aug 11, 2016 08:32 Tino Rodrgíuez MD Aug 11, 2016 13:09
[2016-08-11] MEDS ORDERED: ASPIRIN 81 MG CHEW TAB CHEW SCH ×2 (09:00)
[2016-08-11] MEDS ORDERED: FENOFIBRATE 134 MG PO SCH (09:00)
[2016-08-11] MEDS ORDERED: NON-FORMULARY DRUG (Levothyroxine 137 MCG) PO SCH (09:00)
[2016-08-11] MEDS ORDERED: FENOFIBRATE 145 MG TAB PO SCH (09:00)
[2016-08-11 09:25] LABS: HEMATOCRIT 34.1 % (35.0-46.0); MEAN CELL VOLUME 97.5 FL (80.0-100.0); MEAN CORPUSCULAR HEMOGLOBIN 33.5 PG (27.0-34.0); MEAN CORPUSCULAR HGB CONC 34.3 % (32.0-36.0); PLATELET COUNT 161 TH/MM3 (150-450); RED CELL DISTRIBUTION WIDTH 12.4 % (11.6-17.2); REVIEW FLAG FINAL; WHITE BLOOD COUNT 5.2 TH/MM3 (4.0-11.0)
[2016-08-11] MEDS ORDERED: REGADENOSON INJ 0.4 MG/5 ML SYR ONE (12:37)
[2016-08-11] MEDS: METOPROLOL TARTRATE 50 MG TAB PO SCH (13:52)
[2016-08-11] MEDS: SODIUM CHLORIDE 0.9% FLUSH 10 ML FLUSH IV FLUSH SCH (13:53)
--- NOTE | 2016-08-11 14:32 | RADRPT ---
EXAM DATE/TIME: 08/11/2016 11:47 [place] COMPARISON: No previous studies available for comparison. INDICATIONS : Tachycardia. Atrial fibrillation. DOSE: 25.4 mCi Tc99m Myoview at stress. 8.2 mCi Tc99m Myoview at rest. 0.4 mg Lexiscan STRESS SYMPTOMS: Short of breath. EJECTION FRACTION: 51% MEDICAL HISTORY : Diabetes mellitus type 2. Hypertension. Stroke. SURGICAL HISTORY : Hysterectomy. Mastectomy, right. Right hip surgery. ENCOUNTER: Initial ACUITY: 1 day PAIN SCALE: 2/10 LOCATION: Bilateral chest TECHNIQUE: The patient underwent pharmacologic stress with infusion of prescribed dose. Continuous ECG tracing was monitored during stress. Gated SPECT imaging was performed after stress and conventional SPECT i maging was performed at rest. The examination was performed on a SPECT/CT scanner, both attenuation and non-corrected datasets were reviewed. FINDINGS: DISTRIBUTION: The maximum perfused segment at stress is in the anterolateral wall. PERFUSION STUDY: The pattern of perfusion at stress is within normal limits. GATED STUDY: There is intact wall motion and thickening without hypokinetic or dyskinetic segments. CONCLUSION: No reversible defects observed to suggest acute ischemia. RISK CATEGORY: Low Francisco Ramirez Jr., MD on August 11, 2016 at 14:26 Board Certified Radiologist. This report was verified electronically.
[2016-08-11] MEDS ORDERED: ASPI81CH25 CHEW (15:29)
[2016-08-11] MEDS ORDERED: METO-309 PO (15:29)
--- NOTE | 2016-08-11 15:51 | HHI.DCPOC ---
Discharge Care Plan Diagnosis: (1) Atrial fibrillation with RVR (2) Hypokalemia (3) Diarrhea (4) Depression (5) Elevated lactic acid level Goals to Promote Your Health * To prevent worsening of your condition and complications * To maintain your health at the optimal level Directions to Meet Your Goals Take your medications as prescribed Follow your dietary instruction Follow activity as directed Keep your appointments as scheduled Take your immunizations and boosters as scheduled If your symptoms worsen call your PCP, if no PCP go to Urgent Care Center or Emergency Room Smoking is Dangerous to Your Health. Avoid second hand smoke Call the 24-hour hour crisis hotline for domestic abuse at Lalo Glover MD Aug 11, 2016 15:51
[2016-08-11] MEDS ORDERED: XARE20TA PO (15:54)
--- NOTE | 2016-08-11 15:57 | HHI.DS ---
Discharge Summary Admission Date Aug 10, 2016 at 15:15 Discharge Date: Aug 11, 2016 Admitting Diagnosis new onset atrial fibrillation in RVR, N/V/D (1) Atrial fibrillation with RVR ICD Code: I48.91 Diagnosis: Principal (2) Lactic acid acidosis ICD Code: E87.2 Diagnosis: Principal (3) Diarrhea ICD Code: R19.7 Diagnosis: Principal (4) IFG (impaired fasting glucose) ICD Code: R73.01 Diagnosis: Principal (5) Hypothyroidism ICD Code: E03.9 Diagnosis: Secondary (6) Hypokalemia ICD Code: E87.6 Diagnosis: Principal (7) Nausea & vomiting ICD Code: R11.2 Diagnosis: Principal Procedures none Brief History - From Admission 75-year-old female with past medical history of hypertension, hyperlipidemia, hypothyroidism, prediabetes who presents to [facility] complaining of generalized weakness. The patient states that this morning she woke up and went to a clinic this morning for evaluation of a research study for arthritis medication when she started to feel worse. Patient states that she felt nauseous and shaky and also had open patient's, however denied any chest pain. The patient states that early in the morning she had 2 episodes of diarrhea and vomited 5-6 times this afternoon. Patient states that the recent facility her condition not improve so they called EMS. EKG performed in house showed atrial fibrillation with RVR at which time her pulse was 150-1 70 bpm. At the time she was given IV Cardizem which slowed her heart rate down but then it went up again and the patient was started on a Cardizem drip. The patient states she had similar symptoms 2 weeks ago which improved and resolved spontaneously with rest only. The patient otherwise denies any chest pain, shortness of breath, visual changes, abdominal pain, dysuria. States that feels nauseous, denies any further vomiting or diarrhea. Note that the patient has been recently treated for UTI last week with cephalexin which she recently finished this past weekend. Denies any previous history of atrial fibrillation heart disease or alcohol abuse. 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 CBC/BMP: 08/11/16 0846 08/10/16 1400 Significant Findings Laboratory Tests Test 08/10/16 08/10/16 08/10/16 08/11/16 14:00 17:20 21:43 08:46 Neutrophils (%) (Auto) 83.4 % (16.0-70.0) Lymphocytes # (Auto) 0.8 TH/MM3 (1.0-4.8) Activated Partial 23.6 SEC Thromboplast Time (24.3-30.1) Urine Turbidity HAZY (CLEAR) Urine Protein 30 mg/dL (NEG-TRACE) Urine Bacteria RARE /hpf (NONE) Potassium Level 3.0 MEQ/L (3.5-5.1) Blood Urea Nitrogen 21 MG/DL (7-18) Random Glucose 142 MG/DL (74-106) Lactic Acid Level 2.4 mmol/L (0.4-2.0) Troponin I LESS THAN 0.02 LESS THAN 0.02 LESS THAN 0.02 NG/ML NG/ML NG/ML (0.02-0.05) (0.02-0.05) (0.02-0.05) Red Blood Count 3.50 MIL/MM3 (4.00-5.30) Hematocrit 34.1 % (35.0-46.0) Imaging Last Impressions Myocardial Perfusion Scan Nuc Med 08/11/16 0600 Signed Impressions: Service Date/Time: Thursday, August 11, 2016 11:47 - CONCLUSION: No reversible defects observed to suggest acute ischemia. RISK CATEGORY: Low Francisco Ramirez Jr., MD Chest X-Ray 08/10/16 1345 Signed Impressions: Service Date/Time: August 13:57 - CONCLUSION: No infiltrates seen. Linear densities in the costophrenic angles bilaterally are nonspecific and could represent septal lines from pulmonary interstitial edema, atelectasis , or chronic scarring. Francisco Del Angel MD Pt update on day of discharge Patient denies palpitations, chest pain, shortness of breath. Diarrhea, nausea and vomiting have also subsided. Hospital Course The patient was admitted to the medical floor and monitored on telemetry. Upon arrival of the patient to the medical floor the patient had already converted to normal sinus rhythm. The patient was taken off the Cardizem drip and the patient was placed on a beta [place], more specifically Toprol 25 minutes by mouth twice a day which later was increased to 50 mg twice a day by cardiology. Echo Cardizem showed an EF of 55-60% and moderate to severe pulmonary hypertension. Patient was also started on Lovenox of densely 1 mg/kg gram twice a day for anti-correlation was in the hospital since her Chads Vasc score is 4. The patient was discharged on Xarelto. Was noted the patient had some low potassium likely secondary to diarrhea, nausea and vomiting which resolved spontaneously. Initially was thought that possibly patient could have C. difficile so C. difficile toxin PCR was sent, however diarrhea resolved before the stool could be obtained. This likely not C. difficile diarrhea. Potassium was replaced orally and came back normal on BMP. Cardiac enzymes remain negative throughout hospital stay. Patient also had some lactic acidosis of 2.4 which was likely induced by the dehydration secondary to nausea and vomiting as was diarrhea. Lactic acidosis was treated with IV fluids. The patient was discharged home with instructions to follow-up with cardiology and her primary care physician. Nausea and vomiting were treated with antiemetics. Pt Condition on Discharge: Stable Discharge Disposition: Discharge Home Discharge Time: > 30 minutes Discharge Instructions Follow up Referrals: Cardiology - 2 Weeks PCP Follow-up New Medications: Rivaroxaban (Xarelto) 20 Mg Tab 20 MG PO DAILY Blood Clot Prevention #31 Ref 0 TAB Aspirin (Aspirin Low Strength) 81 Mg Chew 81 MG CHEW DAILY afib #31 EA Metoprolol Tartrate (Lopressor) 50 Mg Tab 50 MG PO BID afib #62 TAB Continued Medications: Amlodipine (Amlodipine) 5 Mg Tab 5 MG PO DAILY Blood Pressure Management #90 Ref 1 TAB Ascorbic Acid (Vitamin C) 250 Mg Tab 250 MG PO Nutritional Supplement Ref 0 TAB Atorvastatin (Atorvastatin) 20 Mg Tab 20 MG PO HS Cholesterol Management #90 Ref 0 TAB Cholecalciferol (Vitamin D) 1,000 Unit Tab 1000 UNITS PO DAILY Nutritional Supplement #1 Ref 0 BOTTLE Clonidine (Clonidine) 0.1 Mg Tab 0.1 MG PO BID SBP>160, DBP>90 PRN Blood Pressure #30 Ref 0 TAB Coenzyme Q10 (Ubidecarenone) (Co Q 10) 60 Mg Cap Diphenhydramine (Benadryl Allergy) 25 Mg Tab 25 MG PO HS PRN SLEEP Ref [address] (Dul[address]etine DR) 30 Mg Capdr 30 MG PO HS Mood Contro/ Sleep #90 Ref 1 CAP Fenofibrate (Fenofibrate) 120 Mg Tab 134 MG PO DAILY Take with meals #30 Ref 0 TAB Furosemide (Furosemide) 20 Mg Tab 0.5 TAB PO DAILY PRN ankle swelling #5 Ref 0 TAB Glucosa Batista 2Kcl/Chondroitin Batista (Glucosamine & Chondroitin Cap) 1 Each Capsule Levothyroxine (Levothyroxine) 137 Mcg Tab 137 MCG PO DAILY Thyroid #90 Ref 0 TAB Magnesium Gluconate (Magnesium Gluconate) Unknown Strength Tab Unknown Dose PO DAILY Two tabs AM and Three tabs PM Sleep Aid Ref 0 TAB Metformin (Metformin) 500 Mg Tab 500 MG PO AC BREAKFAST Blood Sugar Management #90 Ref 1 TAB Multivitamin (Fie-Cpgsfi-Nusyz) 1 Each Tablet [place]-3 Fatty Acids ([place]-3) 100 Mg Tab.chew ([Truemetric Strips]) 50 STRIPS .XX DAILY PRN blood glucose #1 Ref 1 BOX ([TrueMetric]) 1 KIT .XX DAILY TrueMetrics Glucometer PRN blood sugar #1 Ref 0 EA Discontinued Medications: Aspirin (Aspirin) 81 Mg Chew 162 MG CHEW DAILY Ref 0 TAB Atenolol (Atenolol) 25 Mg Tab 25 MG PO BID Blood Pressure Management #180 Ref 0 TAB Cephalexin (Cephalexin) 500 Mg Cap 500 MG PO Q12H Infection #6 Ref 0 CAP Chlorthalidone (Chlorthalidone) 25 Mg Tab 0.5 TAB PO DAILY Blood Pressure Management #45 Ref 0 TAB Guanfacine (Guanfacine) 1 Mg Tab 3 TAB PO HS Do not crush, chew or divide tablet. Take with a meal. Blood Pressure Management #90 Ref 5 TAB Losartan (Losartan) 25 Mg Tab 25 MG PO DAILY Blood Pressure Management #90 Ref 0 TAB Magnesium (Magnesium) 250 Mg Tab Lalo Glover MD Aug 11, 2016 15:57
[2016-08-11 16:00] VITALS: BP 131/61; PULSE 57; RESP 18; TEMP 98.2; O2SAT 92
[2016-08-11] MEDS ORDERED: RIVAROXABAN 20 MG TAB PO SCH (16:00)
[2016-08-11 16:19] LABS: BICARBONATE 25.1 MEQ/L (21.0-32.0); POTASSIUM 3.7 MEQ/L (3.5-5.1)
--- NOTE | 2016-08-11 17:51 | EKG ---
Date Performed: 08/10/2016 Time Performed: 16:21:49 PTAGE: 75 years EKG: Sinus rhythm MINIMAL VOLTAGE CRITERIA FOR LVH, CONSIDER NORMAL VARIANT NONSPECIFIC T-WAVE ABNORMALITY BORDERLINE ECG PREVIOUS TRACING : 08/10/2016 13.35 Compared to the previous tracing a fib no longer present DOCTOR: Marcus Wright Interpretating Date/Time 08/11/2016 17:49:35
--- NOTE | 2016-08-11 17:54 | EKG ---
Date Performed: 08/10/2016 Time Performed: 13:35:38 PTAGE: 75 years EKG: ATRIAL FIBRILLATION VOLTAGE CRITERIA FOR LVH OLD INFERIOR MYOCARDIAL INFARCTION ABNORMAL EC G NO PREVIOUS TRACING DOCTOR: Marcus Wright Interpretating Date/Time 08/11/2016 17:52:21
[2016-08-17] MEDS ORDERED: LEVO137T2 PO (21:53)
[2016-08-29] MEDS ORDERED: XARE20TA PO (10:29)
[2016-08-30] MEDS ORDERED: FENO1TAB39 PO (08:45)
== END 2016-08-11 17:33 | disposition home or self-care (01) | DRG 309 ==
LOC: NEPC 13:24 → NEDA 15:15 → N04A 18:25
PROVIDERS: ADMIT Hospitalist; ATTEND Hospitalist
DX: I48.0 Paroxysmal atrial fibrillation (principal); E87.2 Acidosis; E11.65 Type 2 diabetes mellitus with hyperglycemia; I27.2 Other secondary pulmonary hypertension; R19.7 Diarrhea, unspecified; E03.9 Hypothyroidism, unspecified; E87.6 Hypokalemia; I10 Essential (primary) hypertension; E78.5 Hyperlipidemia, unspecified; E86.0 Dehydration; I34.0 Nonrheumatic mitral (valve) insufficiency; Z86.73 Personal history of transient ischemic attack (TIA), and cerebral infarction without residual deficits; H91.91 Unspecified hearing loss, right ear; F32.9 Major depressive disorder, single episode, unspecified; Z79.82 Long term (current) use of aspirin; Z79.899 Other long term (current) drug therapy; Z85.3 Personal history of malignant neoplasm of breast; Z87.440 Personal history of urinary (tract) infections; Z87.891 Personal history of nicotine dependence; Z90.13 Acquired absence of bilateral breasts and nipples
CPT/HCPCS: 71010; 78452; 80048; 80053; 81001; 82550; 83605; 83690; 83735; 84443; 84484; 85025; 85027; 85610; 85730; 93005; 93017; 93306; 96365; 96375; A9502; J1650; J2405; J2785; J3480; J7030; Q0169